=== PATIENT | female | born 1980 | race African-American/Black ===

== ENCOUNTER 2019-03-11 06:29 | Emergency (ER) | payer SELFPAY ==
[~2019-03-11] VITALS: Ht 160 cm; Wt 84.0 kg
[2019-03-11] MEDS ORDERED: FAMOTIDINE 20MG/2ML VIAL IV STA (07:23)
[2019-03-11] MEDS ORDERED: SODIUM CHLORIDE 0.9% 1,000 ML IV ONE (07:23)
[2019-03-11] MEDS ORDERED: MORPHINE SULFATE 4 MG/ML CPJ (NOT FOR IM USE) IV STA (07:23)
[2019-03-11] MEDS ORDERED: ONDANSETRON HCL 4MG/2ML INJ IV STA (07:23)
[2019-03-11 07:40] LABS: BASOPHILS % 0.5 % (0.0-2.0); EOSINOPHILS % 2.9 % (0.0-5.0); HEMATOCRIT. 37.2 % (36.0-48.0); HEMOGLOBIN. 12.5 g/dL (12.0-16.0); LYMPHOCYTES % 17.7 % (20.0-50.0); MEAN CORPUSCULAR HEMOGLOBIN 28.1 pg (28.0-32.0); MEAN CORPUSCULAR VOLUME 83.9 fL (81.0-99.0); MEAN PLATELET VOLUME 10.4 fl (7.4-10.4); MONOCYTES % 6.2 % (2.0-8.0); NEUTROPHILS % 72.7 % (40.0-76.0); PLATELET 267 x1000/uL (130-400); RED BLOOD CELL COUNT 4.44 mill/uL (4.2-5.4); RED CELL DISTRIBUTION WIDTH 14.2 % (11.6-14.6)
[2019-03-11 07:46] LABS: CHLORIDE 103 mEq/L (98-107)
[2019-03-11 07:50] LABS: INR 0.9; PROTHROMBIN TIME 9.7 sec (9.6-11.0)
[2019-03-11 07:58] LABS: HCG SCREEN POSITIVE
[2019-03-11 09:32] LABS: CLARITY URINE CLOUDY (CLEAR); COLOR URINE YELLOW (YELLOW); KETONES URINE 2+ (NEGATIVE); LEUKOCYTE ESTERASE URINE NEGATIVE (NEGATIVE); NITRITE URINE NEGATIVE (NEGATIVE); OCCULT BLOOD URINE NEGATIVE (NEGATIVE); PH URINE 7.5 (4.5-8.0); PROTEIN URINE TRACE (NEGATIVE); SPECIFIC GRAVITY URINE 1.015 (1.005-1.030); UROBILINOGEN URINE 0.2 E.U./dL (0.2-1.0)
[2019-03-11] MEDS ORDERED: KCL 20MEQ/100ML PREMIX 100 ML IV ONE (09:45)
[2019-03-11 14:28] VITALS: BP 165/84
== END 2019-03-11 14:33 | disposition home or self-care (01) ==
LOC: ER 06:29
DX: O26.891 Other specified pregnancy related conditions, first trimester (principal); O21.9 Vomiting of pregnancy, unspecified; E86.0 Dehydration; E87.6 Hypokalemia; F12.10 Cannabis abuse, uncomplicated; I10 Essential (primary) hypertension; Z98.890 Other specified postprocedural states; Z3A.01 Less than 8 weeks gestation of pregnancy
CPT/HCPCS: 36415; 76705; 76801; 76817; 80053; 81003; 81025; 83690; 84702; 84703; 85025; 85610; 96361; 96365; 96366; 96375; 99284; J2270; J2405; J3480; J3490; J7030

== ENCOUNTER 2020-08-24 12:35 | Emergency (ER) | payer MEDICAID ==
[~2020-08-24] VITALS: Ht 157.5 cm; Wt 82.0 kg
[2020-08-24] MEDS ORDERED: LABETALOL 5MG/ML SYR 20 MG/4 ML SYRINGE IV ONE (13:15)
[2020-08-24 13:30] LABS: BASOPHILS % 1.2 % (0.0-2.0); EOSINOPHILS % 7.3 % (0.0-5.0); HEMATOCRIT. 35.2 % (36.0-48.0); HEMOGLOBIN. 11.9 g/dL (12.0-16.0); LYMPHOCYTES % 28.7 % (20.0-50.0); MEAN CORPUSCULAR HEMOGLOBIN 29.2 pg (28.0-32.0); MEAN CORPUSCULAR VOLUME 86.1 fL (81.0-99.0); MEAN PLATELET VOLUME 10.9 fl (7.4-10.4); NEUTROPHILS % 52.8 % (40.0-76.0); PLATELET 177 x1000/uL (130-400); RED BLOOD CELL COUNT 4.08 mill/uL (4.2-5.4); RED CELL DISTRIBUTION WIDTH 17.4 % (11.6-14.6)
[2020-08-24 13:37] LABS: CLARITY URINE TURBID (CLEAR); COLOR URINE RED (YELLOW); KETONES URINE TRACE (NEGATIVE); LEUKOCYTE ESTERASE URINE 2+ (NEGATIVE); NITRITE URINE POSITIVE (NEGATIVE); OCCULT BLOOD URINE 3+ (NEGATIVE); PROTEIN URINE 3+ (NEGATIVE); SPECIFIC GRAVITY URINE 1.019 (1.005-1.030); UROBILINOGEN URINE 0.2 E.U./dL (0.2-1.0)
[2020-08-24 13:38] LABS: HCG SCREEN POSITIVE
[2020-08-24 13:40] LABS: CHLORIDE 107 mEq/L (98-107); INR 0.9; PROTHROMBIN TIME 9.8 sec (9.6-11.0)
[2020-08-24 13:53] LABS: PHENCYCLIDINE URINE SCREEN NEGATIVE (NEGATIVE)
[2020-08-24 13:54] LABS: *AMPHETAMINES SCREEN URINE NEGATIVE (NEGATIVE); *BARBITURATES SCREEN URINE NEGATIVE (NEGATIVE); *BENZODIAZEPINES SCREEN URINE NEGATIVE (NEGATIVE); *COCAINE SCREEN URINE NEGATIVE (NEGATIVE); METHADONE URINE SCREEN NEGATIVE (NEGATIVE); OPIATES URINE SCREEN NEGATIVE (NEGATIVE)
[2020-08-24 13:58] LABS: CANNABINOID URINE SCREEN PRESUMTIVE POSITIVE (NEGATIVE)
[2020-08-24] MEDS ORDERED: CEFAZOLIN 1000MG PREMIX 50 ML IV ONE (14:00)
[2020-08-24 14:04] LABS: B-HCG QUANTITATIVE 31141 mIU/mL (<3)
[2020-08-24] MEDS ORDERED: LABETALOL HCL 200MG TABLET PO STA (17:40)
[2020-08-24 19:01] VITALS: BP 187/102
== END 2020-08-24 19:01 | disposition home or self-care (01) ==
LOC: ER 12:35
DX: O20.0 Threatened abortion (principal); O16.2 Unspecified maternal hypertension, second trimester; O23.42 Unspecified infection of urinary tract in pregnancy, second trimester; Z91.14 Patient's other noncompliance with medication regimen; Z98.890 Other specified postprocedural states; Z3A.18 18 weeks gestation of pregnancy
CPT/HCPCS: 36415; 76805; 76817; 80053; 80305; 81003; 81025; 84702; 84703; 85025; 85610; 86850; 86900; 86901; 87086; 93005; 96365; 96375; 99285; J0690; J3490